=== PATIENT | male | born 1950 | race Hispanic/Latino ===

== ENCOUNTER 2016-07-30 11:09 | Observation (INO) | payer BC ==
[2016-07-30 11:35] VITALS: RESP 16
--- NOTE | 2016-07-30 12:19 | ED PDOC ---
HPI: CCC, URI, Sore Throat Time Seen by Provider: 07/30/16 11:51 Chief Complaint (Nursing): Flu-like Symptoms Chief Complaint (Provider): Flu-like Symptoms History Per: Patient History/Exam Limitations: no limitations Onset/Duration Of Symptoms: Days Current Symptoms Are (Timing): Still Present Location Of Pain: Throat, Diffuse Myalgias Sick Contacts (Context): None Associated Symptoms: Fever, Sore Throat, Cough Ear Symptoms: Bilateral: None Severity: Mild Additional Complaint(s): Patient is a 66 year old male who presents to ED for evaluation of sore throat, bilateral ears ringing, SOB, fatigue and subjective fever for 5 days. Patient states that he is exhausted and is finding it difficult to do perform everyday tasks. Denies chest pain, palpations, back pain or recent travel PMD: DR. Mckenzie Past Medical History Reviewed: Historical Data, Nursing Documentation, Vital Signs Vital Signs: Last Vital Signs Temp 97.6 F 07/30/16 18:30 Pulse 88 07/30/16 18:30 Resp 16 07/30/16 11:33 BP 119/86 07/30/16 18:30 Pulse Ox 99 07/30/16 18:30 - Medical History PMH: Emphysema, Fractures (ankle) - Surgical History Surgical History: Tonsillectomy - Family History Family History: States: No Known Family Hx - Living Arrangements Living Arrangements: With Family - Immunization History Hx Tetanus Toxoid Vaccination: No Hx Influenza Vaccination: No Hx Pneumococcal Vaccination: No - Home Medications Home Medications: Ambulatory Orders Medication Instructions Recorded Naproxen [Naprosyn] 500 mg PO BID PRN #20 tablet 07/30/16 - Allergies Allergies/Adverse Reactions: Allergies Allergy/AdvReac Type Severity Reaction Status Date / Time No Known Allergies Allergy Verified 07/30/16 11:33 Review of Systems ROS Statement: Except As Marked, All Systems Reviewed And Found Negative Constitutional: Positive for: Fever, Chills, Weakness (generalized) ENT: Positive for: Throat Pain. Negative for: Ear Pain Cardiovascular: Negative for: Chest Pain, Palpitations Respiratory: Positive for: Cough, Shortness of Breath. Negative for: Sputum Gastrointestinal: Negative for: Nausea, Vomiting, Abdominal Pain Musculoskeletal: Negative for: Neck Pain Skin: Negative for: Rash Neurological: Negative for: Weakness, Numbness Physical Exam - Reviewed Nursing Documentation Reviewed: Yes Vital Signs Reviewed: Yes - Physical Exam Appears: Positive for: Non-toxic, No Acute Distress Skin: Positive for: Normal Color, Warm Eye Exam: Positive for: Normal appearance ENT: Negative for: Nasal Congestion, Pharyngeal Erythema, Tonsillar Exudate Neck: Positive for: Normal, Painless ROM Cardiovascular/Chest: Negative for: Murmur Respiratory: Positive for: Normal Breath Sounds. Negative for: Wheezing Extremity: Positive for: Normal ROM Neurologic/Psych: Positive for: Alert, Oriented - Laboratory Results Result Diagrams: 07/30/16 12:40 07/30/16 12:40 - ECG Interpretation Of ECG: NSR @ 80, no ST-T changes. O2 Sat by Pulse Oximetry: 98 (RA) Pulse Ox Interpretation: Normal - Radiology X-Ray: Read By Radiologist X-Ray Interpretation: No Acute Disease - CT Scan/US CT head Other Rad Studies (CT/US): Radiology Report Reviewed (No intracranial mass, hemorrhage or evidence of acute infarct.) - Physician Consult Information Time Consulting Physican Contacted: 15:30 Physician Contacted: Davey Mckenzie Outcome Of Conversation: Case discussed. States pt drinks alcohol daily, recommends thiamine, folate, IVF and troponin level. If negative, can d/c home. Medical Decision Making Medical Decision Making: Time: 1205 Initial impression: Viral illness Initial plan: -- EKG -- CMP -- TSH -- CBC -- PT/PTT -- CXR -- U/A -- Flu swab -- Rapid strep Scribe Attestation: Documented by Carolina Fry acting as a scribe for Beverley Galvan MD. Scribe Attestation: All medical record entries made by the Scribe were at my direction and personally dictated by me. I have reviewed the chart and agree that the record accurately reflects my personal performance of the history, physical exam, medical decision making, and the department course for this patient. I have also personally directed, reviewed, and agree with the discharge instructions and disposition. ED OBSERVATION Date of observation admission: 07/30/16 Time of observation admission: 13:00 - Observation admission statement Patient is being placed in observation because:: Need for additional diagnostics to rule-out acute condition. - Goals of Observation Goals of observation are:: Resolution of symptoms. - Progress Note Progress Note: 07/30/16 1510 Patient is awake, vitals are stable, but symptoms persist, patient still pending results as well Lab work reviewed all WNL, neg flu and rapid strep CT-head Impression; No intracranial mass, hemmorhage or evidence of acute infarct Plan: -- Troponin -- NSF and Magic Mouthwash Disposition - Clinical Impression Clinical Impression: Gingivostomatitis - Disposition Disposition: Routine/Home Disposition Time: 18:20 Condition: IMPROVED
[2016-07-30 13:07] LABS: BASO % 0.3 % (0.0-2.0); EOS % 0.5 % (0.0-4.0); LYMPH # 0.7 K/uL (1.0-4.3); LYMPH % 12.3 % (20.0-40.0); MEAN CELL VOLUME 96.2 fl (80.0-94.0); MEAN CORPUSCULAR HEMOGLOBIN 33.8 pg (27.0-31.0); MEAN CORPUSCULAR HGB CONC 35.1 g/dL (33.0-37.0); MONO # 0.8 K/uL (0.0-0.8); MONO % 14.2 % (0.0-10.0); NEUT # 4.3 K/uL (1.8-7.0); NEUT % 72.7 % (50.0-75.0); NRBC % 0.1 % (0.0-0.0); RED CELL DISTRIBUTION WIDTH 12.5 % (11.5-14.5)
[2016-07-30 13:16] LABS: RBC URINE 3 /hpf (0-3); URINE BILIRUBIN NEGATIVE (NEGATIVE); URINE BLOOD NEGATIVE (NEGATIVE); URINE COLOR AMBER (YELLOW); URINE GLUCOSE (UA) NEG (Normal); URINE KETONE TRACE mg/dL (NEGATIVE); URINE LEUKOCYTE ESTERASE NEG Leu/uL (Negative); URINE PROTEIN 30 mg/dL (NEGATIVE); URINE UROBILINOGEN 0.2-1.0 mg/dL (0.2-1.0); WBC URINE 5 /hpf (0-5)
[2016-07-30 13:18] LABS: ALB/GLOB RATIO 1.3 (1.0-2.1); ALKALINE PHOSPHATASE 72 U/L (38-126); ALT/SGPT 32 U/L (21-72); AST/SGOT 35 U/L (17-59); BILIRUBIN,TOTAL 0.6 mg/dl (0.2-1.3); BLOOD UREA NITROGEN 21 mg/dl (9-20); CALCIUM 9.5 mg/dL (8.4-10.2); CARBON DIOXIDE 22 mmol/L (22-30); CHLORIDE 100 mmol/L (98-107); GFR AFRICAN-AMERICAN > 60; GLUCOSE,RANDOM 102 mg/dL (75-110); POTASSIUM 4.3 MMOL/L (3.6-5.0); SODIUM 137 mmol/l (132-148); TOTAL PROTEIN 8.1 G/DL (6.3-8.2)
--- NOTE | 2016-07-30 13:18 | RAD ---
HISTORY: SOB COMPARISON: No prior. TECHNIQUE: Chest PA and lateral FINDINGS: LUNGS: No active pulmonary disease. PLEURA: No significant pleural effusion identified. No pneumothorax apparent. CARDIOVASCULAR: Normal. OSSEOUS STRUCTURES: No significant abnormalities. VISUALIZED UPPER ABDOMEN: Normal. OTHER FINDINGS: None. IMPRESSION: No active disease.
[2016-07-30 13:22] LABS: PARTIAL THROMBOPLASTIN TIME 28.2 SECONDS (23.3-32.5)
[2016-07-30 13:47] LABS: THYROID STIMULATING HORMONE 2.32 mIU/ML (0.46-4.68)
--- NOTE | 2016-07-30 14:57 | CT ---
PROCEDURE: CT HEAD WITHOUT CONTRAST. HISTORY: Dizziness COMPARISON: None available. TECHNIQUE: Axial computed tomography images were obtained through the head/brain without intravenous contrast. Radiation dose: Total exam DLP = 882.28 mGy-cm. This CT exam was performed using one or more of the following dose reduction techniques: Automated exposure control, adjustment of the mA and/or kV according to patient size, and/or use of iterative reconstruction technique. FINDINGS: HEMORRHAGE: No intracranial hemorrhage. BRAIN: No mass effect or edema. Minimal atrophy. No evidence of acute infarct. VENTRICLES: No hydrocephalus. Incidentally noted cavum septum pellucidum. CALVARIUM: Unremarkable. PARANASAL SINUSES: Unremarkable as visualized. No significant inflammatory changes. MASTOID AIR CELLS: Unremarkable as visualized. No inflammatory changes. OTHER FINDINGS: None. IMPRESSION: No intracranial mass, hemorrhage or evidence of acute infarct.
[2016-07-30] MEDS ORDERED: Multivitamin (MVI) 10 ML, Thiamine 100 MG, Folic Acid 1 MG in Sodium Chloride 0.9% 1,00... IV ONE (15:22)
[2016-07-30] MEDS ORDERED: Mag&Al/Simet/Diphen/Lido 237 ML KIT PO STA (15:26)
[2016-07-30] MEDS ORDERED: Alum-Mag Hydrox-Simethicone Susp (30 mL) ONE (15:53)
[2016-07-30 18:32] VITALS: BP 119/86; PULSE 88; TEMP 97.6
[2016-07-31 09:03] VITALS: O2SAT 98
--- NOTE | 2016-07-31 13:36 | CARD ---
APPROVED REPORT EKG Measurement Heart [id number] MD [id number] <Conclusion> Normal sinus rhythm Normal ECG
== END 2016-07-30 18:20 | disposition home or self-care (01) ==
LOC: H.ER 11:09 → H.EROBSV 13:00
PROVIDERS: ADMIT Emergency Medicine; ATTEND Emergency Medicine
DX: K05.10 Chronic gingivitis, plaque induced (principal); J43.9 Emphysema, unspecified
CPT/HCPCS: 70450; 71020; 80053; 81003; 84443; 84484; 85025; 85610; 85730; 87070; 87430; 87804; 93005; 99285; G0378; J3411; J7040